=== PATIENT | male | born 2005 | race Caucasian/White ===

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

== ENCOUNTER 2024-07-17 13:15 | Emergency (ER) | payer OTHER ==
[~2024-07-17] VITALS: Ht 170.2 cm; Wt 60.4 kg
[~2024-07-17 13:15] MED LIST changes: +MECL-209 PO; +METH54TA5; +METH5TAB76; +MINO100C4; +OMEP-173
[2024-07-17] MEDS ORDERED: METH36TA6 (13:24)
[2024-07-17 13:44] LABS: BASO # 0.1 10^3/uL (0.0-0.2); BASO % 0.8 % (0.0-1.0); EOS # 0.2 10^3/uL (0.0-0.5); EOS % 2.1 % (0.0-3.0); HEMATOCRIT 45.5 % (42.0-52.0); HEMOGLOBIN 16.3 g/dl (13.5-17.5); LYMPH # 1.4 10^3/uL (1.5-5.0); MEAN CORPUSCULAR HEMOGLOBIN 30.1 pg (27.0-33.0); MEAN CORPUSCULAR HGB CONC 35.8 g/dl (32.0-36.5); MEAN CORPUSCULAR VOLUME 83.9 fl (80.0-96.0); MONO # 0.6 10^3/uL (0.0-0.8); MONO % 7.4 % (2.0-8.0); NEUTROPHILS # 5.3 10^3/uL (1.5-8.5); NEUTROPHILS % 70.3 % (36.0-66.0); PLATELET COUNT, AUTOMATED 269 10^3/uL (150-450); RED BLOOD COUNT 5.42 10^6/uL (4.30-6.10); WHITE BLOOD COUNT 7.6 10^3/uL (4.0-10.0)
[2024-07-17 14:09] LABS: BILIRUBIN,DIRECT 0.4 MG/DL (<0.4); BILIRUBIN,TOTAL 1.2 MG/DL (0.3-1.2); MAGNESIUM LEVEL 1.9 MG/DL (1.8-2.4); TOTAL PROTEIN 7.6 G/DL (5.7-8.2)
[2024-07-17] MEDS: METOCLOPRAMIDE INJ 10MG/2ML VIAL IV ONE (14:16)
[2024-07-17] MEDS: diphenhydrAMINE 50MG/ML VIAL IV STA (14:16)
[2024-07-17] MEDS: NS 1,000 ML IV ONE (14:26)
[2024-07-17 15:42] VITALS: BP 126/80; TEMP 98.3; O2SAT 100
== END 2024-07-17 15:43 | disposition home or self-care (01) ==
LOC: M ED 13:15
DX: H81.4 Vertigo of central origin (principal); F90.9 Attention-deficit hyperactivity disorder, unspecified type; Z90.89 Acquired absence of other organs; Z79.899 Other long term (current) drug therapy; Z79.83 Long term (current) use of bisphosphonates
CPT/HCPCS: 80047; 80076; 83735; 85025; 93005; 96361; 96374; 99284; J1200; J2765